=== PATIENT | male | born 1975 | race Hispanic/Latino ===

== ENCOUNTER 2020-12-18 18:29 | Emergency (ER) | payer OTHER ==
[~2020-12-18] VITALS: Ht 180.3 cm; Wt 140.6 kg
[2020-12-18 18:30] VITALS: BP 148/87
[2020-12-18 21:05] VITALS: BP 119/73
[2020-12-18 21:09] LABS: APPEARANCE,URINE Clear (CLEAR); BILIRUBIN,URINE Negative (NEGATIVE); COLOR,URINE Yellow (YELLOW); GLUCOSE, URINE (UA) Negative (NEGATIVE); KETONES,URINE Negative (NEGATIVE); LEUKOCYTE ESTERASE ,URINE Negative (NEGATIVE); NITRATE,URINE Negative (NEGATIVE); OCCULT BLOOD,URINE Negative (NEGATIVE); PH,URINE 6.5 (5.0-8.0); PROTEIN,URINE Trace mg/dL (NEGATIVE)
[2020-12-18 21:22] LABS: BASOPHILS % (AUTO) 0.6 % (0.0-5.0); EOSINOPHILS % (AUTO) 3.8 % (0.0-8.0); HEMATOCRIT 42.3 % (42-54); LYMPHOCYTES % (AUTO) 39.1 % (21.0-51.0); MEAN CORPUSCULAR HEMOGLOBIN 30.8 pg (27.0-33.0); MEAN CORPUSCULAR HGB CONC 33.8 g/dL (32.0-36.0); MEAN CORPUSCULAR VOLUME 91.2 fL (79-99); MONOCYTES % (AUTO) 7.2 % (3.0-13.0); NEUTROPHILS % (AUTO) 49.1 % (40.0-77.0); PLATELET COUNT (AUTO) 256 K/uL (130-400); RED BLOOD CELL COUNT(AUTO) 4.64 MIL/uL (4.50-6.20); RED CELL DISTRIBUTION WIDTH 12.7 % (11.0-15.5); WHITE BLOOD COUNT (AUTO) 8.4 K/uL (4.8-10.8)
[2020-12-18] MEDS ORDERED: 0.9%NACL 1000ML 1,000 ML IV SCH (21:30)
[2020-12-18] MEDS ORDERED: ONDANSETRON 4MG INJ IVP ONE (21:30)
[2020-12-18] MEDS ORDERED: METOCLOPRAMIDE 10 MG/2 ML VIAL ONE (21:30)
[2020-12-18] MEDS ORDERED: FAMOTIDINE 20MG VIAL IV ONE ×2 (21:30→21:31)
[2020-12-18] MEDS ORDERED: METOCLOPRAMIDE 10 MG/2 ML VIAL IVP ONE (21:30)
[2020-12-18] MEDS ORDERED: ONDANSETRON 4MG INJ ONE (21:30)
[2020-12-18] MEDS: PANTOPRAZOLE 40 MG/VIAL IVP SCH ×2 (21:30→21:54)
[2020-12-18] MEDS ORDERED: PANTOPRAZOLE 40 MG/VIAL ONE (21:31)
[2020-12-18 21:33] LABS: POTASSIUM 3.9 mmol/L (3.5-5.1)
[2020-12-18 21:38] LABS: ALBUMIN 4.1 g/dL (3.5-5.0); BILIRUBIN,TOTAL 1.1 mg/dL (0.2-1.0); TOTAL PROTEIN, SERUM 8.7 g/dL (6.0-8.3)
[2020-12-18 22:28] VITALS: BP 130/78
[2020-12-18 23:39] VITALS: BP 112/68
[2020-12-19] MEDS ORDERED: PANT40TA54 PO (00:46)
[2020-12-19] MEDS ORDERED: ONDA4TAB10 PO (00:46)
[2020-12-19] MEDS ORDERED: METO-296 PO (00:46)
[2020-12-19 00:57] VITALS: BP 114/67
== END 2020-12-19 01:25 | disposition home or self-care (01) ==
LOC: EDH 18:29
DX: K29.70 Gastritis, unspecified, without bleeding (principal); E86.9 Volume depletion, unspecified; E78.00 Pure hypercholesterolemia, unspecified; I10 Essential (primary) hypertension; Z79.899 Other long term (current) drug therapy
CPT/HCPCS: 36415; 71045; 76705; 80053; 81003; 82150; 83605; 83690; 84484; 85025; 93005; 96374; 96375; 99285; C9113; J2405; J2765; J3490; J7030